=== PATIENT | male | born 1955 | race African-American/Black ===

== ENCOUNTER 2024-08-05 09:01 | Observation (INO) ==
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
[2024-08-05] MEDS: ALBUT/IPRATROP 3MG/0.5MG NEB 3 ML VIAL NEB STA (09:18)
--- NOTE | 2024-08-05 09:35 | XRay Report ---
XR chest 1V portable CLINICAL HISTORY: Chest pain, nonspecific COMPARISON STUDY: None FINDINGS: Heart size and pulmonary vasculature are normal. There is mild blunting of the right costop hrenic angle. No other consolidation or pleural effusion. No pneumothorax. IMPRESSION: Mild blunting of the right costophrenic angle could represent scarring or small right pl eural effusion with associated mild right lung base consolidation. ACT 112: Negative or not required by law. Electronically signed by: Anselmo Brunson M.D. 08/05/2024 9:33 AM
[2024-08-05 09:36] LABS: Basophils # (auto) 0.08 K/uL (0.00-0.20); Basophils % (auto) 1.2 %; Eosinophils # (auto) 1.08 K/uL (0.00-0.50); Eosinophils % (auto) 15.9 %; Hematocrit (blood only) 44.1 % (42.0-52.0); Hemoglobin 14.8 g/dl (14.0-18.0); Immature Granulocytes # (auto) 0.01 K/uL (0.01-0.20); Immature Granulocytes % (auto) 0.1 %; Lymphocytes # (auto) 1.51 K/uL (1.20-3.40); Lymphocytes % (auto) 22.2 %; Mean Corpuscular Hgb Conc 33.6 g/dL (32.0-36.0); Mean Corpuscular Volume 92.5 fL (80.0-100.0); Mean Platelet Volume 10.7 fL (9.4-12.4); Monocytes # (auto) 0.49 K/uL (0.11-0.59); Monocytes % (auto) 7.2 %; Neutrophils # (auto) 3.62 K/uL (1.40-6.50); Neutrophils % (auto) 53.4 %; Platelet Count 218 K/uL (130-400); RDW Standard Deviation 44.1 fL (36.4-46.3); Red Blood Count 4.77 M/uL (4.70-6.10); White Blood Count 6.79 K/ul (4.8-10.8)
[2024-08-05 09:59] LABS: Albumin Globulin Ratio 1.4 (0.9-2); BUN Creatinine Ratio 12.3 (10-20); Bilirubin,Total 0.6 mg/dl (0.2-1.0); Calcium 9.2 mg/dl (8.6-10.3); Creatinine Clr Calc Pharmacy 71.8 ml/min; Globulin 3.3 gm/dl (2.5-4.0); Potassium 4.6 mmol/L (3.5-5.1); Total Protein 7.8 gm/dl (6.0-8.3)
[2024-08-05 10:05] LABS: Troponin I High Sensitivity 5.1 pg/ml (0-20)
[2024-08-05] MEDS: ALBUTEROL 0.083% NEBU SOLN 3 ML VIAL NEB STA (10:42)
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
[2024-08-05] MEDS ORDERED: ACETAMINOPHEN 325 MG TAB PO PRN (11:27)
[2024-08-05] MEDS ORDERED: MELATONIN 3 MG TAB PO PRN (11:32)
[2024-08-05] MEDS ORDERED: methylPREDNISolone 125 MG/2 ML VIAL IV SCH (12:30)
[2024-08-05] MEDS: ENOXAPARIN INJ 40 MG/0.4 ML SYR SQ ONE (13:05)
[2024-08-05] MEDS: AZITHROMYCIN 250 MG TAB PO STA (13:06)
[2024-08-05] MEDS: methylPREDNISolone 40 MG in SYRINGE 0 ML IV SCH (13:06)
[2024-08-05] MEDS: ALBUT/IPRATROP 3MG/0.5MG NEB 3 ML VIAL NEB SCH (13:07)
[2024-08-05] MEDS: predniSONE 20 MG TAB PO ONE (13:08)
--- NOTE | 2024-08-05 13:27 | Billing Data ---
Date of Service August 05, 2024 Coding Level of Care Code 92668 INT INP/OBS CARE
--- NOTE | 2024-08-05 14:24 | CT Scan Report ---
CT lung screening (low dose) CLINICAL HISTORY: lung cancer screening COMPARISON STUDY: Chest radiograph performed earlier today. CT DOSE: 137.28 mGy.cm TECHNIQUE: Low-dose helical CT was acquired without intravenous contrast from lung apices to bases a nd reconstructed at 2.5 mm every 2 mm. Automated exposure control was utilized for the study. A dos e lowering technique was utilized adhering to the principles of ALARA. FINDINGS: No enlarged axillary, mediastinal or hilar lymph nodes are present. The size of the heart is normal. There is no pericardial effusion. Mild diffuse bronchial wall thickening with mucus pluggi ng is noted. There is no pneumothorax or pleural effusion. Mild right pleural thickening is noted wit h subpleural densities suggestive of scarring. There is a 9 mm solid noncalcified left lower lobe pul monary nodule on image 182 of 316. No definite intralesional fat is identified. There is a 5 mm subpl eural right middle lobe nodule on image 181 and a 3 mm solid noncalcified right upper lobe pulmonary nodule on image 71. Several old right-sided rib deformities are present. IMPRESSION: 1. Several solid noncalcified pulmonary nodules, the largest of which is a 9 mm left lower lobe pulmo nary nodule which is indeterminate and categorized as Category 4A (Suspicious, 5-15% chance of malign aj). This could be assessed with a PET/CT or a short-term low dose chest CT in 3 months. 2. No acute intrathoracic findings. Overall Lung RADS Category: 4A - Suspicious - Findings for which additional diagnostic testing is re commended. Return for CT lung short term (low dose) in three months. PET CT may be used when there is a greater than or equal to 8 mm solid component. Modifier S: No ACT 112: Negative or not required by law. Electronically signed by: Xander Avila M.D. 08/05/2024 2:23 PM
[2024-08-05] MEDS: amLODIPine BESYLATE 5 MG TAB PO SCH (14:29)
[2024-08-05] MEDS: PNEUMOCOCCAL VACCINE (PCV20) 20-VAL CONJ-DIP CRM/PF 0.5 ML SYR IM ONE (14:30)
[2024-08-05] MEDS: Patient's ALLERGY Info needs ENTERED STA (17:57)
[2024-08-05] MEDS: SODIUM CHLOR 7% 4 ML NEB NEB SCH (18:12)
[2024-08-05] MEDS: guaiFENesin 600 MG TABCR PO SCH (19:41)
[2024-08-05] MEDS: TAMSULOSIN HCL 0.4 MG CAP PO SCH (19:41)
--- NOTE | 2024-08-06 04:53 | Electrocardiogram Report ---
Test Reason : Blood Pressure : */* mmHG Vent. Rate : 86 BPM Atrial Rate : 86 BPM P-R Int : 160 ms QRS Dur : 76 ms QT Int : 352 ms P-R-T Axes : 74 56 61 degrees QTcB Int : 421 ms Normal sinus rhythm Septal infarct , age undetermined Abnormal ECG No previous ECGs available Confirmed by Austin Carmichael ([id number]) on 08/06/2024 4:52:56 AM Referred By: Confirmed By: Austin Carmichael
[2024-08-06 06:29] LABS: Hematocrit (blood only) 41.2 % (42.0-52.0); Hemoglobin 14.1 g/dl (14.0-18.0); Mean Corpuscular Hemoglobin 31.1 pg (25.0-34.0); Mean Corpuscular Hgb Conc 34.2 g/dL (32.0-36.0); Mean Corpuscular Volume 90.9 fL (80.0-100.0); Platelet Count 215 K/uL (130-400); RDW Coefficient of Variation 13.2 % (11.5-14.5); RDW Standard Deviation 44.3 fL (36.4-46.3); Red Blood Count 4.53 M/uL (4.70-6.10); White Blood Count 6.92 K/ul (4.8-10.8)
[2024-08-06 06:52] LABS: BUN Creatinine Ratio 15.7 (10-20); Calcium 9.4 mg/dl (8.6-10.3); Creatinine Clr Calc Pharmacy 74.8 ml/min; Potassium 4.7 mmol/L (3.5-5.1)
--- NOTE | 2024-08-06 07:03 | Hospitalist Progress Note ---
Date of Service August 06, 2024 Assessment & Plan (1) Acute bronchitis with COPD: (2) Dyspnea on minimal exertion: (3) Shortness of breath: (4) Chronic bronchitis with COPD (chronic obstructive pulmonary disease): (5) Hypertension: Plan 1) Presumed COPD exacerbation Dyspnea with minimal exertion, wheezing, worsening cough and sputum production -Etiology likely d/t acute COPD exacerbation with chronic bronchitis -08/05 CXR shows no pleural effusion or pneumothorax. Mild blunting of R costophrenic angle or small R pleural effusion with mild R lung base consolidation. -08/05 negative COVID test -08/[address] shows Several solid noncalcified pulmonary nodules, the largest of which is a 9 mm left lower lobe pulmonary nodule which is indeterminate and categorized as Category 4A (Suspicious, 5-15% chance of malignancy) -Pneumococcal vaccine administered 08/05 -Continue IV methylprednisolone 40mg BID; azithromycin, 500 mg, PO, for 3-day course -Mucinex, 1200 mg, PO, BID; hypertonic saline, 7%, BIDR -Continue AM labs: CBC, BMP -Spirometry for outpatient COPD workup -PET/CT or short-term low dose chest CT in 3 months for outpatient lung cancer workup -Manage outpatient chronically w triple therapy and prn beta agonist and then titrate down if possible over time Chronic conditions S/p [place], HLD - continue atorvastatin HTN - continue amlodipine BPH - Tamsulosin, PO, 0.8 mg, HS Borderline prediabetes/T2DM - fasting Glu, 133; A1C, 6.2 Med Rec/[facility] Hx - Phone #: [phone] Code status: Full code Disposition: Med-Surg Tele FENGI: Heart-healthy, Carb consistent type 2 VTE Prophylaxis: Enoxaparin, 40 mg, subQ, daily Admission and Anticipated Discharge Date Admission Date: August 05, 2024 Supervising Physician Co-Signing Physician Notes I personally examined the patient and verified all humphries points of history and exam, discussed case, and agree with decision making with Dr Huddleston and Dorian Patel MS2 SOB better, still some pain in center of chest worse with deep breath but way better than yesterday vitals noted nad breathing unlabored faint inspiratory wheeze but overall far more clear than yesterday. no accessory muscles no conversational dyspnea (presumed) COPD exac -likely viral bronchitis mechanism -continue steroids, nebs, zithromax -supportive care, time - improving (presumed) COPD -spirometry to confirm once current exac resolved -CT chest done - nodules noted -quit smoking 3wks ago- applauded -would manage chronically w triple therapy and prn beta agonist and then titrate down if possible over time (explained rationale of maintenance vs rescue inhalers - will probably need to reiterate at ne) lung nodules -f/u PET/CT ~3 months DVT proph - lovenox Subjective No acute overnight events. Brandon reports marked improvement in coughing fits and dyspnea since yesterday. He continues to have coughing episodes triggered by movement although he says they are less frequent and less severe compared to yesterday. He reports he still "can't walk fast." Sleep and appetite good. No fever, headache, nausea, hemoptysis reported. Review of Systems Eyes: + corrective lenses (reading glasses) Respiratory: + cough, + dyspnea on exertion, + sputum production and + wheezing Cardiovascular: + dyspnea and + dyspnea on exertion Physical Exam Constitutional: Lying in bed, on room air. No acute distress. ENMT: external ear and nose normal, oropharynx normal Neck: normal visual inspection Respiratory: Auscultation: + diminished lung sounds (bilaterally) and + wheezes (expiratory bilaterally) Cardiovascular: RRR, no murmur, no edema Gastrointestinal (Abdomen): normal bowel sounds, soft, nontender, no hepatosplenomegaly Skin: no rashes, warm and dry Neurologic: PERRL, EOMI, accommodation nl, no face palsy, no dysarthria Psychiatric: A+Ox3, euthymic affect Results & Data Results & Data Vital Signs (Past 12 Hours) Vital Signs Temp Pulse Pulse Resp BP Pulse Ox O2 Del Method 08/06/24 03:36 36.7 C 76 16 137/50 L 94 Room Air 08/05/24 23:29 36.6 C 94 H 18 158/89 H 91 Room Air 08/05/24 22:10 82 08/05/24 19:38 36.7 C 102 H 20 145/78 H 93 Room Air 08/05/24 19:30 Room Air Diagnostic Findings 08/[address] Lung Scan FINDINGS: No enlarged axillary, mediastinal or hilar lymph nodes are present. The size of the heart is normal. There is no pericardial effusion. Mild diffuse bronchial wall thickening with mucus plugging is noted. There is no pneumothorax or pleural effusion. Mild right pleural thickening is noted with subpleural densities suggestive of scarring. There is a 9 mm solid noncalcified left lower lobe pulmonary nodule on image 182 of 316. No definite intralesional fat is identified. There is a 5 mm subpleural right middle lobe nodule on image 181 and a 3 mm solid noncalcified right upper lobe pulmonary nodule on image 71. Several old right-sided rib deformities are present. IMPRESSION: 1. Several solid noncalcified pulmonary nodules, the largest of which is a 9 mm left lower lobe pulmonary nodule which is indeterminate and categorized as Category 4A (Suspicious, 5-15% chance of malignancy). This could be assessed with a PET/CT or a short-term low dose chest CT in 3 months. 2. No acute intrathoracic findings. Overall Lung RADS Category: 4A - Suspicious - Findings for which additional diagnostic testing is recommended. Return for CT lung short term (low dose) in three months. PET CT may be used when there is a greater than or equal to 8 mm solid component.
[2024-08-06 07:55] LABS: Estimated Average Glucose 131 mg/dl; Hemoglobin A1C 6.2 % (4.5-5.6)
[2024-08-06 08:27] LABS: Chol HDL Ratio 2.9 (0-5)
[2024-08-06] MEDS ORDERED: predniSONE 20 MG TAB PO SCH (09:00)
[2024-08-06] MEDS: ATORVASTATIN 20 MG TAB PO SCH (09:28)
--- NOTE | 2024-08-06 12:52 | Billing Data ---
Date of Service August 06, 2024 Coding Level of Care Code 96298 SUB INP/OBS CARE
[2024-08-06] MEDS: ENOXAPARIN INJ 40 MG/0.4 ML SYR SQ SCH (13:58)
[2024-08-06] MEDS: AZITHROMYCIN 250 MG TAB PO SCH (14:29)
[2024-08-07 06:10] LABS: Hematocrit (blood only) 42.2 % (42.0-52.0); Hemoglobin 14.5 g/dl (14.0-18.0); Mean Corpuscular Hemoglobin 31.4 pg (25.0-34.0); Mean Corpuscular Hgb Conc 34.4 g/dL (32.0-36.0); Mean Corpuscular Volume 91.3 fL (80.0-100.0); Mean Platelet Volume 11.1 fL (9.4-12.4); Platelet Count 224 K/uL (130-400); RDW Coefficient of Variation 13.2 % (11.5-14.5); RDW Standard Deviation 44.2 fL (36.4-46.3); Red Blood Count 4.62 M/uL (4.70-6.10); White Blood Count 9.79 K/ul (4.8-10.8)
[2024-08-07 06:55] LABS: BUN Creatinine Ratio 17.7 (10-20); Calcium 9.2 mg/dl (8.6-10.3); Creatinine Clr Calc Pharmacy 67.6 ml/min; Potassium 4.5 mmol/L (3.5-5.1)
--- NOTE | 2024-08-07 07:00 | Hospitalist Progress Note ---
Date of Service August 07, 2024 Assessment & Plan (1) Acute bronchitis with COPD: (2) Dyspnea on minimal exertion: (3) Shortness of breath: (4) Chronic bronchitis with COPD (chronic obstructive pulmonary disease): (5) Hypertension: Plan 1) Presumed COPD exacerbation Dyspnea with minimal exertion, wheezing, worsening cough and sputum production -Etiology likely d/t acute COPD exacerbation with chronic bronchitis -08/05 CXR shows no pleural effusion or pneumothorax. Mild blunting of R costophrenic angle or small R pleural effusion with mild R lung base consolidation. -08/05 negative COVID test -08/[address] shows Several solid noncalcified pulmonary nodules, the largest of which is a 9 mm left lower lobe pulmonary nodule which is indeterminate and categorized as Category 4A (Suspicious, 5-15% chance of malignancy) -Pneumococcal vaccine administered 08/05 -Continue IV methylprednisolone 40mg BID; azithromycin, 500 mg, PO, for 3-day course -Mucinex, 1200 mg, PO, BID; hypertonic saline, 7%, BIDR -Continue AM labs: CBC, BMP -Spirometry for outpatient COPD workup -PET/CT or short-term low dose chest CT in 3 months for outpatient lung cancer workup -Manage outpatient chronically w triple therapy and prn beta agonist and then titrate down if possible over time Chronic conditions S/p [place], HLD - continue atorvastatin HTN - continue amlodipine BPH - Tamsulosin, PO, 0.8 mg, HS Borderline prediabetes/T2DM - fasting Glu, 133; A1C, 6.2 Med Rec/Skilled Nursing Med Hx - Phone #: [phone] Code status: Full code Disposition: Med-Surg Tele FENGI: Heart-healthy, Carb consistent type 2 VTE Prophylaxis: Enoxaparin, 40 mg, subQ, daily Admission and Anticipated Discharge Date Admission Date: August 06, 2024 Subjective No acute overnight events. Edspencer reports marked improvement in coughing fits and dyspnea since Monday, which was the worse day for him symptom-joyce. He continues to have coughing episodes with sputum production. He had some sternal chest pain but it was resolved after taking the nebulizer. Some chills reported last night. Sleep and appetite good. No fever, headache, nausea, hemoptysis reported. He requests a printout of his CT scan results. Review of Systems Constitutional: + fever, + sweats and + fatigue Eyes: + corrective lenses (reading glasses) Ear, Nose, Mouth, Throat: + sore throat Respiratory: + cough, + dyspnea on exertion, + sputum production and + wheezing Cardiovascular: + chest pain and + dyspnea Physical Exam Eyes: PERRL, conjunctivae normal, anicteric sclerae ENMT: external ear and nose normal, oropharynx normal Neck: normal visual inspection Respiratory: Auscultation: + diminished lung sounds (bilaterally) and + wheezes (expiratory bilaterally, though much improved ) Cardiovascular: RRR, no murmur, no edema Extremities: normal capillary refill Gastrointestinal (Abdomen): normal bowel sounds, soft, nontender, no hepatosplenomegaly Inspection/Auscultation: + abdomen distended Skin: no rashes, warm and dry Neurologic: PERRL, EOMI, accommodation nl, no face palsy, no dysarthria Results & Data Results & Data Vital Signs (Past 12 Hours) Vital Signs Temp Pulse Resp BP Pulse Ox O2 Del Method 08/07/24 00:27 Room Air 08/07/24 00:09 36.6 C 81 18 174/62 H 90 Room Air 08/06/24 20:10 Room Air 08/06/24 19:35 36.5 C 75 12 145/78 H 98 Room Air 08/06/24 19:23 76 18 95 Room Air Resident Activity Tracking Resident Involvement: Resident Care Provided Care Provided: Adult Hospital Medicine
[2024-08-07] MEDS: POLYETHYLENE (MIRALAX) 17 GM PACK PO PRN (09:09)
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
--- NOTE | 2024-08-07 19:28 | Billing Data ---
Date of Service August 07, 2024 Coding Level of Care Code 44928 IN/OBS DISCH 30 MIN/LESS
--- NOTE | 2024-08-07 19:28 | Billing Data ---
Date of Service August 07, 2024 Coding Level of Care Code 01727 IN/OBS DISCH 30 MIN/LESS
== END 2024-08-07 13:23 | DRG 192 ==
LOC: ED 09:01 → EDINP 09:01 → 2N 13:50 → 3E 08-07 00:07